=== PATIENT | female | born 1995 | race Caucasian/White ===

== ENCOUNTER 2023-12-01 16:02 | Outpatient (REF) | payer OTHER, SELFPAY ==
--- NOTE | ~2023-12-01 | XR_ITS ---
EXAMINATION: XR FOOT, LEFT CLINICAL INFORMATION: Pain post trauma COMPARISON: None available. TECHNIQUE: AP, lateral, and oblique views of the left foot. FINDINGS: Bones are in normal anatomic alignment with no acute fracture or dislocation seen. No significant bony degenerative or destructive changes. No periosteal reaction or bony erosions. No radiopaque foreign body. There is diffuse soft tissue swelling of a long forefoot. XR/XR foot LT min 3V IMPRESSION: Soft tissue swelling but no acute underlying fracture or dislocation. Electronically signed by: Clemente Desai MD 12/01/2023 06:44 PM EDT
== END 2023-12-01 16:03 | disposition home or self-care (01) ==
LOC: HO.HMGCX 16:02
PROVIDERS: PCP Internal Medicine; Visit Provider Emergency Medicine
DX: M79.672 Pain in left foot (principal)
CPT/HCPCS: 73630